=== PATIENT | female | born 1985 | race African-American/Black ===

== ENCOUNTER 2016-07-16 13:51 | Emergency (ER) | payer MEDICAID ==
[~2016-07-16] VITALS: Ht 160 cm; Wt 81.0 kg
[2016-07-16 13:56] VITALS: BP 126/69
[2016-07-16] MEDS ORDERED: VISCOUS LIDOCAINE 2% 15 ML UDC MM PRN (15:30)
[2016-07-16] MEDS ORDERED: ACETAMINOPHEN 500MG TABLET PO ONE (15:30)
[2016-07-16] MEDS ORDERED: ONDANSETRON 4MG ODT PO ONE (15:30)
== END 2016-07-16 16:29 | disposition home or self-care (01) ==
LOC: ER 13:53
DX: J06.9 Acute upper respiratory infection, unspecified (principal); F17.200 Nicotine dependence, unspecified, uncomplicated
CPT/HCPCS: 99283; Q0162

== ENCOUNTER 2019-02-12 14:40 | Emergency (ER) | payer MEDICAID ==
[~2019-02-12] VITALS: Ht 165.1 cm; Wt 113.0 kg
[2019-02-12 15:40] VITALS: BP 126/71
[2019-02-12] MEDS ORDERED: DOCUSATE SODIUM SUGAR FREE 100MG/10ML UDC NG ONE (16:45)
== END 2019-02-12 18:09 | disposition home or self-care (01) ==
LOC: ER 14:40
DX: H61.22 Impacted cerumen, left ear (principal); F17.210 Nicotine dependence, cigarettes, uncomplicated; Z90.49 Acquired absence of other specified parts of digestive tract
CPT/HCPCS: 69209; 99282

== ENCOUNTER 2021-03-22 08:31 | Emergency (ER) | payer MEDICAID ==
[~2021-03-22] VITALS: Ht 165.1 cm; Wt 95.0 kg
[2021-03-22 08:33] VITALS: BP 120/78
[2021-03-22] MEDS ORDERED: ACETAMINOPHEN 325MG TABLET PO ONE (09:00)
[2021-03-22 10:19] LABS: BASOPHILS % 0.8 % (0.0-2.0); EOSINOPHILS % 3.6 % (0.0-5.0); HEMOGLOBIN. 14.2 g/dL (12.0-16.0); LYMPHOCYTES % 34.4 % (20.0-50.0); MEAN CORPUSCULAR HEMOGLOBIN 30.4 pg (28.0-32.0); MEAN CORPUSCULAR VOLUME 92.1 fL (81.0-99.0); MEAN PLATELET VOLUME 8.6 fl (7.4-10.4); MONOCYTES % 6.9 % (2.0-8.0); NEUTROPHILS % 54.3 % (40.0-76.0); PLATELET 315 x1000/uL (130-400); RED BLOOD CELL COUNT 4.67 mill/uL (4.2-5.4); RED CELL DISTRIBUTION WIDTH 14.1 % (11.6-14.6)
[2021-03-22 10:25] LABS: CHLORIDE 106 mEq/L (98-107)
[2021-03-22 10:36] LABS: B-HCG QUANTITATIVE < 1 mIU/mL (<3)
[2021-03-22 10:36] LABS: *AMPHETAMINES SCREEN URINE NEGATIVE (NEGATIVE); *BARBITURATES SCREEN URINE NEGATIVE (NEGATIVE); *BENZODIAZEPINES SCREEN URINE NEGATIVE (NEGATIVE); *COCAINE SCREEN URINE NEGATIVE (NEGATIVE); METHADONE URINE SCREEN NEGATIVE (NEGATIVE)
[2021-03-22 10:37] LABS: OPIATES URINE SCREEN NEGATIVE (NEGATIVE); PHENCYCLIDINE URINE SCREEN NEGATIVE (NEGATIVE)
[2021-03-22 10:42] LABS: CANNABINOID URINE SCREEN PRESUMTIVE POSITIVE (NEGATIVE)
[2021-03-22] MEDS ORDERED: ACET-2708 MT (11:42)
== END 2021-03-22 11:59 | disposition home or self-care (01) ==
LOC: ER 08:31
DX: D25.9 Leiomyoma of uterus, unspecified (principal); Z13.9 Encounter for screening, unspecified; Z90.49 Acquired absence of other specified parts of digestive tract; Z98.890 Other specified postprocedural states
CPT/HCPCS: 36415; 76830; 76856; 80053; 80305; 81025; 84702; 85025; 86850; 86900; 99284

== ENCOUNTER 2022-07-24 07:22 | Emergency (ER) | payer MEDICAID ==
[~2022-07-24] VITALS: Ht 165.1 cm; Wt 91.0 kg
[~2022-07-24 07:22] MED LIST: ACET-2708 MT
[2022-07-24 07:31] VITALS: BP 117/80
[2022-07-24] MEDS ORDERED: ONDANSETRON HCL 4MG/2ML INJ IV STA (08:37)
[2022-07-24] MEDS ORDERED: SODIUM CHLORIDE 0.9% 1,000 ML IV ONE (08:45)
[2022-07-24 09:19] LABS: CLARITY URINE CLOUDY (CLEAR); COLOR URINE DARK YELLOW (YELLOW); KETONES URINE 2+ (NEGATIVE); LEUKOCYTE ESTERASE URINE 2+ (NEGATIVE); NITRITE URINE POSITIVE (NEGATIVE); OCCULT BLOOD URINE 3+ (NEGATIVE); PH URINE 5.5 (4.5-8.0); PROTEIN URINE 3+ (NEGATIVE); SPECIFIC GRAVITY URINE 1.018 (1.005-1.030)
[2022-07-24] MEDS ORDERED: TOPUD PO (09:28)
[2022-07-24] MEDS ORDERED: NITR100C PO (09:28)
[2022-07-24 09:59] LABS: BASOPHILS % 0.2 % (0.0-2.0); EOSINOPHILS % 0.1 % (0.0-5.0); HEMATOCRIT. 36.9 % (36.0-48.0); HEMOGLOBIN. 12.6 g/dL (12.0-16.0); LYMPHOCYTES % 9.7 % (20.0-50.0); MEAN CORPUSCULAR HEMOGLOBIN 30.5 pg (28.0-32.0); MEAN CORPUSCULAR VOLUME 89.5 fL (81.0-99.0); MEAN PLATELET VOLUME 9.4 fl (7.4-10.4); PLATELET 300 x1000/uL (130-400); RED BLOOD CELL COUNT 4.13 mill/uL (4.2-5.4)
[2022-07-24] MEDS ORDERED: ACETAMINOPHEN 325MG TABLET PO ONE (10:15)
[2022-07-24 10:20] LABS: CHLORIDE 99 mEq/L (98-107)
[2022-07-24 15:17] LABS: HCG SCREEN NEGATIVE
== END 2022-07-24 10:26 | disposition home or self-care (01) ==
LOC: ER 07:22
DX: N39.0 Urinary tract infection, site not specified (principal); Z20.822 Contact with and (suspected) exposure to COVID-19
CPT/HCPCS: 36415; 71045; 80053; 81003; 81025; 84703; 85025; 87077; 87086; 87186; 87426; 96361; 96374; 99284; C9803; J2405; J7030; Z7610